=== PATIENT | female | born 1950 | race Caucasian/White ===

== ENCOUNTER → 2023-10-19 14:13 | Outpatient (REF) | payer OTHER, SELFPAY | LOC: WDC 14:13 | PROVIDERS: ATTENDING PHYSICIAN Nurse Practitioner Family | DX: Z12.31 Encounter for screening mammogram for malignant neoplasm of breast (principal); R73.01 Impaired fasting glucose; Z13.820 Encounter for screening for osteoporosis; Z78.0 Asymptomatic menopausal state; M85.89 Other specified disorders of bone density and structure, multiple sites | CPT/HCPCS: 77063; 77067; 77080 ==

== ENCOUNTER → 2024-11-13 12:26 | Outpatient (REF) | payer OTHER, SELFPAY | LOC: WDC 12:26 | PROVIDERS: ATTENDING PHYSICIAN Nurse Practitioner Family | DX: Z12.31 Encounter for screening mammogram for malignant neoplasm of breast (principal) | CPT/HCPCS: 77063; 77067 ==